=== PATIENT | male | born 1975 | race Caucasian/White ===

== ENCOUNTER 2017-03-09 02:34 | Emergency (ER) | payer BC | END 2017-03-09 03:25 | disposition home or self-care (01) | LOC: D.ER 02:34 | DX: S43.402A Unspecified sprain of left shoulder joint, initial encounter (principal); X50.0XXA Overexertion from strenuous movement or load, initial encounter; Y93.89 Activity, other specified; Y92.029 Unspecified place in mobile home as the place of occurrence of the external cause ==

== ENCOUNTER 2018-07-14 18:54 | Emergency (ER) | payer SELFPAY ==
[~2018-07-14] VITALS: Ht 188 cm; Wt 77.3 kg
[2018-07-14 19:15] VITALS: Ht 188 cm; Wt 77.3 kg
[2018-07-14] MEDS ORDERED: VOLTAREN75 MG PO (21:02)
[2018-07-14 21:42] VITALS: BP 124/76
== END 2018-07-14 21:42 | disposition home or self-care (01) ==
LOC: D.ER 18:54
DX: S89.82XA Other specified injuries of left lower leg, initial encounter (principal); W17.89XA Other fall from one level to another, initial encounter; Y93.89 Activity, other specified; Y92.89 Other specified places as the place of occurrence of the external cause

== ENCOUNTER 2018-10-11 22:39 | Emergency (ER) | payer SELFPAY ==
[~2018-10-11] VITALS: Ht 188 cm; Wt 72.7 kg
[~2018-10-11 22:39] MED LIST: VOLTAREN75 MG PO
[2018-10-11 22:46] VITALS: Ht 188 cm; Wt 72.7 kg
[2018-10-11] MEDS ORDERED: NAPROSYN500 MG PO (23:38)
[2018-10-12 00:18] VITALS: BP 135/89
== END 2018-10-12 00:02 | disposition home or self-care (01) ==
LOC: D.ER 22:39
DX: S20.212A Contusion of left front wall of thorax, initial encounter (principal); W20.8XXA Other cause of strike by thrown, projected or falling object, initial encounter; Y93.89 Activity, other specified; Y92.89 Other specified places as the place of occurrence of the external cause